=== PATIENT | female | born 1950 | race African-American/Black ===

== ENCOUNTER 2018-01-15 15:12 | Observation (INO) | payer OTHER, MEDICAID ==
[~2018-01-15] VITALS: Ht 162.6 cm; Wt 79.4 kg
[2018-01-15] MEDS ORDERED: ACETAMINOPHEN 325 MG TAB PO ONE (15:30)
[2018-01-15 16:17] LABS: Basophils # (auto) 0.1 uL; Basophils % (auto) 0.8 % (0.0-2.0); Eosinophils # (auto) 0.2 uL; Eosinophils % (auto) 1.9 % (0.0-7.0); Hematocrit 43.1 % (36.0-46.0); Hemoglobin 14.8 g/dL (12.2-16.2); Lymphocytes % (auto) 30.8 % (10.0-50.0); Mean Corpuscular Hemoglobin 31.6 pg (28.0-32.0); Mean Corpuscular Hgb Conc. 34.4 g/dL (32.0-36.0); Mean Corpuscular Volume 91.8 fL (80.0-100.0); Monocytes # (auto) 0.6 uL; Neutrophils # (auto) 5.9 uL; Neutrophils % (auto) 60.5 % (37.0-80.0); Nucleated Red Blood Cells % 0.1 %; Platelet Count (auto) 273 10^3/uL (140-450); Red Blood Cells 4.69 10^6/uL (4.0-5.20); Red Cell Distribution Width 13.5 % (11.8-14.3); White Blood Cell 9.7 10^3/uL (4.4-10.8)
[2018-01-15 16:46] LABS: Alanine Aminotransferase 50 U/L (13-56); Albumin 3.9 g/dL (3.4-5.0); Alkaline Phosphatase 127 U/L (45-117); Anion Gap 5 (5-15); Aspartate Aminotransferase 37 U/L (15-37); Bilirubin, Total 0.4 mg/dL (0.2-1.0); Blood Urea Nitrogen 8 mg/dL (7-18); Calcium 8.9 mg/dL (8.5-10.1); Carbon Dioxide 27 mmol/L (21-32); Chloride 105 mmol/L (98-107); GFR African American 82 mL/min; GFR Non-African American 68 mL/min; Glucose 120 mg/dL (74-106); Sodium 137 mmol/L (136-145); Total Protein 8.5 g/dL (6.4-8.2)
[2018-01-15 23:27] LABS: INR 0.95 (0.9-1.15); Prothrombin Time 10.2 sec (9.27-12.13)
[2018-01-15 23:32] LABS: Blood Alcohol < 3.0 mg/dL (0-5)
[2018-01-16 01:30] VITALS: BP 158/92
[2018-01-16] MEDS ORDERED: POTASSIUM CHL 20 Meq TABLET PO ONE (02:00)
== END 2018-01-16 02:11 | disposition home or self-care (01) | DRG 641 ==
LOC: ER 15:20 → OVERFLOW 15:21 → ER 01-16 02:11
PROVIDERS: ADMIT Emergency Medicine; ATTEND Emergency Medicine
DX: E87.6 Hypokalemia (principal); G47.00 Insomnia, unspecified; Z63.9 Problem related to primary support group, unspecified; Z88.0 Allergy status to penicillin
CPT/HCPCS: 36415; 70450; 71045; 80053; 80320; 83605; 84484; 85025; 85610; 85730; 93005; 99285; G0378